=== PATIENT | female | born 1970 | race Caucasian/White ===

== ENCOUNTER 2019-04-18 08:22 | Outpatient (RCR) | payer BC, SELFPAY | END 2019-04-18 08:27 | disposition home or self-care (01) | LOC: PT 08:22 | DX: M54.2 Cervicalgia (principal); M25.562 Pain in left knee | CPT/HCPCS: 97163 ==

== ENCOUNTER 2019-07-04 10:00 | Outpatient (RCR) | payer BC, SELFPAY | END 2019-07-04 10:05 | disposition home or self-care (01) | LOC: PT 10:00 | DX: S92.001A Unspecified fracture of right calcaneus, initial encounter for closed fracture (principal) | CPT/HCPCS: 97110; 97116; 97140; 97163; 97164; 97597; 97760 ==

== ENCOUNTER 2025-01-26 21:29 | Emergency (ER) | payer MEDICAID, SELFPAY ==
[2025-01-26] VITALS (9 sets, daily range): BP systolic 115–172; BP diastolic 80–108; PULSE 43–93; RESP 20; TEMP 36.8; O2SAT 95–99; BMI 23.1
--- NOTE | 2025-01-26 22:15 | ECG_ITS ---
APPROVED REPORT Exam: Resting ECG HR:79 bpm ECG Measurements Heart Rate 79 AXES NM 168 P 67 QRSd 84 QRS 81 QT 364 T 78 QTc 398 Conclusion SINUS RHYTHM POSSIBLE RIGHT VENTRICULAR CONDUCTION DELAY [RSR (QR) IN V1/V2] No STEMI Electronically signed by : JEAN CARLOS DAVIS, 01/29/2025 19:25:23
--- NOTE | 2025-01-26 22:15 | CT_ITS ---
PROCEDURE INFORMATION: Exam: CTA Chest With Contrast Exam date and time: 01/26/2025 11:26 PM Age: 54 years old Clinical indication: Chest wall pain; Additional info: Severe L chest pain TECHNIQUE: Imaging protocol: Computed tomographic angiography of the chest with contrast. Exam focused on the arteries. 3D rendering (Not supervised by radiologist): MIP and/or 3D reconstructed images were created by the technologist. Radiation optimization: All CT scans at this facility use at least one of these dose optimization techniques: automated exposure control; mA and/or kV adjustment per patient size (includes targeted exams where dose is matched to clinical indication); or iterative reconstruction. Contrast material: ISOUVE 370; Contrast volume: 70 ml; Contrast route: INTRAVENOUS (IV); COMPARISON: No relevant prior studies available. FINDINGS: Pulmonary arteries: Normal. No pulmonary emboli. Aorta: Unremarkable. No aortic aneurysm. No aortic dissection. Lungs: 4 x 2.5 x 3 cm rounded well-marginated mass in the right lower lobe with lamellated calcification. Pleural spaces: Unremarkable. No pneumothorax. No pleural effusion. Heart: Unremarkable. No cardiomegaly. No pericardial effusion. Lymph nodes: Unremarkable. No enlarged lymph nodes. Bones/joints: Mildly displaced fracture in the anterior left 5th rib. Soft tissues: Unremarkable. IMPRESSION: 1. Mildly displaced fracture in the anterior left 5th rib. 2. No pulmonary embolus. 3. No aortic aneurysm or dissection. 4. 4 x 2.5 x 3 cm rounded well-marginated mass in the right lower lobe with lamellated calcification. Suspicious for pulmonary hamartoma. Three-month follow-up CT recommended to confirm stability.
--- NOTE | 2025-01-26 22:32 | [facility].EDGENADL ---
Discharge Plan Disposition Patient Disposition: Home, Self-Care Condition: Good Prescriptions Prescriptions: New lidocaine 5 % adhesive patch,medicated See Rx Instructions .ROUTE .COMPLEX Qty: 15 0RF Rx Instructions: Apply to most painful area for 12 hours. Remove and leave off for 12 hours before using a new patch. methocarbamol 500 mg tablet 500 mg PO Q6H PRN (Reason: muscle spasm) Qty: 30 0RF hydrocodone-acetaminophen 5-325 mg tablet 1 tab PO Q6H PRN (Reason: pain (scale score 7-10)) Qty: 10 0RF Referrals Follow up/Referrals: Karsten Calle [Primary Care Provider] - See instructions Activity Restrictions/Add. Instructions Additional Instructions/Restrictions: Your evaluated in the ER and are appropriate for discharge at this time. Take Tylenol, ibuprofen if needed for pain, do not exceed the recommended dose on the bottle. Drink water and eat a small snack each time you take these medications to avoid side effects. Take the prescribed methocarbamol (muscle relaxer) and use the lidocaine patches as directed. If you have severe pain after using these medications, then take the hydrocodone. This medication also contains acetaminophen (Tylenol) so be mindful of this when dosing your daily Tylenol. Do not drive or operate machinery after taking methocarbamol or hydrocodone. These medications are sedating and can alter your judgment. Use the provided incentive spirometer multiple times a day as directed. Please make an appointment with your primary care doctor for reevaluation in 2 to 3 days. Also ask them to follow-up the lesion in your right lung. Return to the ER with new, worsening, or otherwise concerning symptoms. Clinical Impressions Clinical Impression: Left rib fracture, Lesion of lung Instructions Patient Instructions: Rib Fracture, DI for Rib Fracture Print Language Print Language: Belarusian Discharge ED Provider: Ambreen Coyne General Adult HPI <Linda العراقي DO - Last Filed: 01/26/25 23:18> General Chief complaint: PAIN Stated complaint: AO03/20 injury lt rib pain Time Seen by Provider: 01/26/25 22:02 Mode of Arrival: Ambulatory Source of Information: Patient Description of Symptoms (Recalled from ER Triage Doc. by RN): left rib injury today suddenly worse pain History of Present Illness HPI narrative: This patient is a 54-year-old female who denies significant past medical history presenting to the emergency department for evaluation with concern for left posterior lateral rib pain radiating around to her left breast. She states that she feels like there something moving in her skin. She notes that on , she was leaning out of her car window trying to get something in a drive-through when her foot slipped, causing her to fall with all of her weight on her left ribs on her car window. She had some pain and tenderness since then, but nothing severe. Tonight, she states that she was feeling around on that area to see if she felt any knots, and suddenly she experienced really severe pain radiating all around from her lateral rib to her shoulder and then around to her breast about her nipple. She notes that she had her daughter put some cream on there and took ibuprofen but cannot get relief. Given the severe pain, she elected to come to the emergency department for evaluation. No other concerns or complaints noted. Related Data Previous Rx's ?Medication ?Instructions ?Recorded hydrocodone 5 mg-acetaminophen 325 1 tab PO Q6H PRN pain (scale score 01/27/25 mg tablet 7-10) #10 tabs lidocaine 5 % topical patch See Rx Instructions topical 01/27/25 .COMPLEX #15 ea methocarbamol 500 mg tablet 500 mg PO Q6H PRN muscle spasm #30 01/27/25 tabs Allergies Allergy/AdvReac Type Severity Reaction Status Date / Time NO KNOWN ALLERGIES - NKA Allergy Mild Uncoded 10/25/17 14:56 [facility] <Linda العراقي DO - Last Filed: 01/26/25 23:18> [facility] Disclaimer: The information contained in this section may have been updated after the patient was seen, as this information can be updated by other users. Social History (Updated 01/26/25 @ 23:18 by Linda العراقي DO) Smoking Status: Never smoker alcohol intake: never current occupational status: employed Travel in the last 8 weeks: None Have you lived/traveled outside [place] in past 30 days?: No Contact w/someone who lives/traveled outside US past 30 days?: No Exposure to someone with infectious disease in past 14 days?: No Do you have a fever (greater than 100.4 F or 38 C)?: No Have you tested positive for COVID-19: No Exposed to someone with COVID-19 in past 14 days?: No Do you have a sore throat?: No Do you have a cough?: No Do you have any weakness?: No Do you have any diarrhea?: No Are you experiencing any unusual bleeding?: No Do you have any muscle aches/pain?: No Do you have any abdominal pain?: No Are you experiencing loss of taste or smell?: No <Linda العراقي DO - Last Filed: 01/26/25 23:18> ROS Obtained: Yes All systems reviewed & no additional complaints except as documented Physical Exam <Linda العراقي DO - Last Filed: 01/26/25 23:18> General General appearance: alert and anxious Comment: Uncomfortable appearing, anxious, writhing around Head Head exam: atraumatic and normocephalic Eye Eye exam: Present normal appearance, PERRL and EOMI ENT ENT exam: Present normal exam, normal oropharynx, mucous membranes moist and normal external ear exam Neck Neck exam: Present normal inspection, full ROM and trachea midline; Absent tenderness Chest Chest inspection: Present normal inspection and symmetric chest wall rise; Absent tenderness Respiratory Respiratory exam: Present normal lung sounds bilaterally; Absent respiratory distress, wheezes, stridor or accessory muscle use Cardiovascular Cardiovascular exam: Present regular rate and normal rhythm Abdominal Exam Abdominal exam: Present soft; Absent distention, tenderness or guarding Extremities Exam Extremities exam: Present normal inspection, full ROM and normal capillary refill; Absent tenderness or edema Back Exam Back exam: Present normal inspection and full ROM; Absent tenderness Neurological Exam Neurological exam: Present alert, oriented X3, CN II-XII intact and normal gait; Absent motor sensory deficit Psychiatric Psychiatric exam: Present anxious Skin Skin exam: Present warm and dry Medical Decision Making <Linda العراقي DO - Last Filed: 01/26/25 23:18> Medical Records Medical records reviewed: Yes I reviewed the patient's medical records. Screening: Per USPSTF and CDC recommendations, given the prevalence of disease in our region, it is our hospital?s policy to screen for HIV and viral Hepatitis for all patients aged 18 and over and those with ongoing risk factors. Jimmy Inquiry Pt receiving controlled substance: No Vital Signs: 01/26/25 21:58 01/26/25 22:16 01/26/25 22:21 Temperature 98.2 F Temperature Source Oral Pulse Rate 43 L 81 Pulse Rate [Right Brachial] 86 Respiratory Rate 20 Blood Pressure 146/102 H 172/102 H Blood Pressure [Right Arm] 170/97 H Blood Pressure Mean [Right Arm] 121 Blood Pressure Source [Right Arm] Automatic Cuff Blood Pressure Position [Right Arm] Sitting 02 Sat by Pulse Oximetry 99 97 98 Oxygen Delivery Method Room Air Room Air Room Air 01/26/25 22:30 01/26/25 22:40 01/26/25 22:51 Temperature Temperature Source Pulse Rate 86 82 75 Pulse Rate [Right Brachial] Respiratory Rate Blood Pressure 142/99 H 139/100 H 115/80 Blood Pressure [Right Arm] Blood Pressure Mean [Right Arm] Blood Pressure Source [Right Arm] Blood Pressure Position [Right Arm] 02 Sat by Pulse Oximetry 95 96 98 Oxygen Delivery Method Room Air Room Air 01/26/25 23:11 01/26/25 23:20 01/26/25 23:50 Temperature Temperature Source Pulse Rate 93 H 81 73 Pulse Rate [Right Brachial] Respiratory Rate Blood Pressure 134/108 H 125/81 136/86 Blood Pressure [Right Arm] Blood Pressure Mean [Right Arm] Blood Pressure Source [Right Arm] Blood Pressure Position [Right Arm] 02 Sat by Pulse Oximetry 95 97 98 Oxygen Delivery Method Room Air Room Air Room Air 01/27/25 00:10 01/27/25 00:20 01/27/25 00:30 Temperature Temperature Source Pulse Rate 71 70 71 Pulse Rate [Right Brachial] Respiratory Rate Blood Pressure 129/79 120/83 121/83 Blood Pressure [Right Arm] Blood Pressure Mean [Right Arm] Blood Pressure Source [Right Arm] Blood Pressure Position [Right Arm] 02 Sat by Pulse Oximetry 97 96 97 Oxygen Delivery Method Room Air Room Air Room Air 01/27/25 00:40 01/27/25 00:50 01/27/25 01:00 Temperature Temperature Source Pulse Rate 66 70 61 Pulse Rate [Right Brachial] Respiratory Rate Blood Pressure 114/97 H 111/78 116/85 Blood Pressure [Right Arm] Blood Pressure Mean [Right Arm] Blood Pressure Source [Right Arm] Blood Pressure Position [Right Arm] 02 Sat by Pulse Oximetry 96 97 99 Oxygen Delivery Method Room Air Room Air Room Air Lab Data Lab results reviewed: Yes I reviewed the patient's lab results. Lab Results 01/26/25 23:00: WBC 7.4, RBC 3.95 L, Hgb 12.0 L, Hct 36.4 L, MCV 92.2, MCH 30.4, MCHC 33.0, RDW 12.3, Plt Count 272, MPV 10.6 H, Neut % (Auto) 73.2, Lymph % (Auto) 15.5, Mcintosh % (Auto) 8.1, Eos % (Auto) 2.0, Baso % (Auto) 1.1, Neut # (Auto) 5.5, Lymph # (Auto) 1.2, Mcintosh # (Auto) 0.6, Eos # (Auto) 0.2, Baso # (Auto) 0.1, Sodium 140, Potassium 4.1, Chloride 103, Carbon Dioxide 35 H, Anion Gap 6.1, BUN 13, Creatinine 0.80, Estimated Creat Clear 102, Estimated GFR 75, Est GFR ( Amer) 91, Glucose 96, Calcium 8.8, Total Bilirubin 0.5, AST 27, ALT 18, Alkaline Phosphatase 110, Troponin I < 0.01, Total Protein 6.9, Albumin 4.3, Globulin 2.9, Albumin/Globulin Ratio 1.5, HCV Ab HELENE w/Rflx PCR Qn Negative, HIV Ag/Ab Combo Qual Negative 01/26/25 23:00 01/26/25 23:00 Orders (Tests/Meds): ED MEDICATIONS Generic Name Dose Route Start Last Admin Trade Name Freq PRN Reason Stop Dose Admin Hydrocodone Bitart/Acetaminophen 1 tab 01/27/25 01:26 01/27/25 01:29 Hydrocodone/Apap 5/325 Mg Tablet PO 01/27/25 01:27 1 tab ONCE ONE Administration Sodium Chloride 10 ml 01/26/25 23:42 01/26/25 23:43 Sodium Chloride 0.9% 10ml Syr (Rad Only) IV 02/25/25 23:41 10 ml NEEDED PRN Administration Maintain IV Site Discontinued Medications Generic Name Dose Route Start Last Admin Trade Name Freq PRN Reason Stop Dose Admin Acetaminophen 1,000 mg 01/26/25 22:16 01/26/25 22:42 Acetaminophen 1,000mg/100ml Vial IV 01/26/25 22:17 1,000 mg ONCE ONE Administration Iopamidol 70 ml 01/26/25 23:42 01/26/25 23:43 Iopamidol-370 (76%);100ml Bottle IV 01/26/25 23:43 70 ml ONCE ONE Administration Ketorolac Tromethamine 15 mg 01/26/25 22:16 01/26/25 22:42 Ketorolac 30mg/Ml Vial IV 01/26/25 22:17 15 mg ONCE ONE Administration Lidocaine 1 each 01/26/25 22:16 01/26/25 22:42 Lidocaine 5% Transdermal Patch TP 01/26/25 22:17 1 each ONCE ONE Administration Methocarbamol 500 mg 01/26/25 22:16 01/26/25 22:42 Methocarbamol 500mg Tablet PO 01/26/25 22:17 500 mg ONCE ONE Administration Sodium Chloride 40 ml 01/26/25 23:42 01/26/25 23:43 0.9 % Sodium Chloride 50 Ml Vial IV 01/26/25 23:43 40 ml ONCE ONE Administration ORDERS Category Date Time Status CT angio chest PE protocol Stat Cat Scan 01/26/25 22:15 Completed CBC w/Auto Diff [Complete Blood Count Auto Diff] Stat Lab 01/26/25 23:00 Completed CMP [Comprehensive Metabolic Panel] Stat Lab 01/26/25 23:00 Completed HIV Combo Routine Lab 01/26/25 23:00 Completed Hepatitis C Ab Qual. W/ RFX Routine Lab 01/26/25 23:00 Completed Trop I [Troponin I] Stat Lab 01/26/25 23:00 Completed Troponin I Q3H Lab 01/27/25 01:30 Ordered Troponin I Q3H Lab 01/27/25 04:30 Ordered ECG Data Tracing #1: I reviewed this ECG and interpreted as documented below: Normal sinus rhythm with a ventricular rate of [address] changes concerning for ischemia. Normal intervals. ECG initial impression date: 01/26/25 ECG initial impression time: 23:00 Medical Decision Narrative: In summary, this patient is a 54-year-old female presenting to the Emergency Department for evaluation of rib pain that initially started on after falling with her ribs into her car window, but acutely worsened tonight when she was feeling the area. Differential diagnoses considered include but are not limited to musculoskeletal strain/sprain, rib fracture, costochondritis, PE, pneumothorax, pleurisy. Ruling out the most morbid conditions drove assessment. On exam, patient is very uncomfortable appearing, anxious appearing, and writhing around in the bed. She has significant tenderness to palpation of her left ribs around rib 4 5, but I do not appreciate any step-offs, deformities, crepitus, bruising, or skin lesions. Workup included CBC, CMP, troponin, CTA chest, and EKG. She was given IV Toradol, acetaminophen, oral Robaxin, and a topical Lidoderm patch. EKG obtained is reassuring. Patient care signed out to the oncoming provider, Dr. Coyne, pending labs and imaging. <Ambreen Coyne MD - Last Filed: 01/27/25 01:31> Jimmy Inquiry Pt receiving controlled substance: Yes Jimmy was queried for this patient: No Reason not queried -: Emergent pt cond-no time Risks and benefits of using a controlled substance: were discussed with pt by me Comment: PDMP shows patient receives methylphenidate but no other controlled substan Vital Signs: 01/26/25 21:58 01/26/25 22:16 01/26/25 22:21 Temperature 98.2 F Temperature Source Oral Pulse Rate 43 L 81 Pulse Rate [Right Brachial] 86 Respiratory Rate 20 Blood Pressure 146/102 H 172/102 H Blood Pressure [Right Arm] 170/97 H Blood Pressure Mean [Right Arm] 121 Blood Pressure Source [Right Arm] Automatic Cuff Blood Pressure Position [Right Arm] Sitting 02 Sat by Pulse Oximetry 99 97 98 Oxygen Delivery Method Room Air Room Air Room Air 01/26/25 22:30 01/26/25 22:40 01/26/25 22:51 Temperature Temperature Source Pulse Rate 86 82 75 Pulse Rate [Right Brachial] Respiratory Rate Blood Pressure 142/99 H 139/100 H 115/80 Blood Pressure [Right Arm] Blood Pressure Mean [Right Arm] Blood Pressure Source [Right Arm] Blood Pressure Position [Right Arm] 02 Sat by Pulse Oximetry 95 96 98 Oxygen Delivery Method Room Air Room Air 01/26/25 23:11 01/26/25 23:20 01/26/25 23:50 Temperature Temperature Source Pulse Rate 93 H 81 73 Pulse Rate [Right Brachial] Respiratory Rate Blood Pressure 134/108 H 125/81 136/86 Blood Pressure [Right Arm] Blood Pressure Mean [Right Arm] Blood Pressure Source [Right Arm] Blood Pressure Position [Right Arm] 02 Sat by Pulse Oximetry 95 97 98 Oxygen Delivery Method Room Air Room Air Room Air 01/27/25 00:10 01/27/25 00:20 01/27/25 00:30 Temperature Temperature Source Pulse Rate 71 70 71 Pulse Rate [Right Brachial] Respiratory Rate Blood Pressure 129/79 120/83 121/83 Blood Pressure [Right Arm] Blood Pressure Mean [Right Arm] Blood Pressure Source [Right Arm] Blood Pressure Position [Right Arm] 02 Sat by Pulse Oximetry 97 96 97 Oxygen Delivery Method Room Air Room Air Room Air 01/27/25 00:40 01/27/25 00:50 01/27/25 01:00 Temperature Temperature Source Pulse Rate 66 70 61 Pulse Rate [Right Brachial] Respiratory Rate Blood Pressure 114/97 H 111/78 116/85 Blood Pressure [Right Arm] Blood Pressure Mean [Right Arm] Blood Pressure Source [Right Arm] Blood Pressure Position [Right Arm] 02 Sat by Pulse Oximetry 96 97 99 Oxygen Delivery Method Room Air Room Air Room Air Lab Data Lab Results 01/26/25 23:00: WBC 7.4, RBC 3.95 L, Hgb 12.0 L, Hct 36.4 L, MCV 92.2, MCH 30.4, MCHC 33.0, RDW 12.3, Plt Count 272, MPV 10.6 H, Neut % (Auto) 73.2, Lymph % (Auto) 15.5, Mcintosh % (Auto) 8.1, Eos % (Auto) 2.0, Baso % (Auto) 1.1, Neut # (Auto) 5.5, Lymph # (Auto) 1.2, Mcintosh # (Auto) 0.6, Eos # (Auto) 0.2, Baso # (Auto) 0.1, Sodium 140, Potassium 4.1, Chloride 103, Carbon Dioxide 35 H, Anion Gap 6.1, BUN 13, Creatinine 0.80, Estimated Creat Clear 102, Estimated GFR 75, Est GFR ( Amer) 91, Glucose 96, Calcium 8.8, Total Bilirubin 0.5, AST 27, ALT 18, Alkaline Phosphatase 110, Troponin I < 0.01, Total Protein 6.9, Albumin 4.3, Globulin 2.9, Albumin/Globulin Ratio 1.5, HCV Ab HELENE w/Rflx PCR Qn Negative, HIV Ag/Ab Combo Qual Negative Orders (Tests/Meds): ED MEDICATIONS Generic Name Dose Route Start Last Admin Trade Name Freq PRN Reason Stop Dose Admin Hydrocodone Bitart/Acetaminophen 1 tab 01/27/25 01:26 01/27/25 01:29 Hydrocodone/Apap 5/325 Mg Tablet PO 01/27/25 01:27 1 tab ONCE ONE Administration Sodium Chloride 10 ml 01/26/25 23:42 01/26/25 23:43 Sodium Chloride 0.9% 10ml Syr (Rad Only) IV 02/25/25 23:41 10 ml NEEDED PRN Administration Maintain IV Site Discontinued Medications Generic Name Dose Route Start Last Admin Trade Name Thomas PRN Reason Stop Dose Admin Acetaminophen 1,000 mg 01/26/25 22:16 01/26/25 22:42 Acetaminophen 1,000mg/100ml Vial IV 01/26/25 22:17 1,000 mg ONCE ONE Administration Iopamidol 70 ml 01/26/25 23:42 01/26/25 23:43 Iopamidol-370 (76%);100ml Bottle IV 01/26/25 23:43 70 ml ONCE ONE Administration Ketorolac Tromethamine 15 mg 01/26/25 22:16 01/26/25 22:42 Ketorolac 30mg/Ml Vial IV 01/26/25 22:17 15 mg ONCE ONE Administration Lidocaine 1 each 01/26/25 22:16 01/26/25 22:42 Lidocaine 5% Transdermal Patch TP 01/26/25 22:17 1 each ONCE ONE Administration Methocarbamol 500 mg 01/26/25 22:16 01/26/25 22:42 Methocarbamol 500mg Tablet PO 01/26/25 22:17 500 mg ONCE ONE Administration Sodium Chloride 40 ml 01/26/25 23:42 01/26/25 23:43 0.9 % Sodium Chloride 50 Ml Vial IV 01/26/25 23:43 40 ml ONCE ONE Administration ORDERS Category Date Time Status CT angio chest PE protocol Stat Cat Scan 01/26/25 22:15 Completed CBC w/Auto Diff [Complete Blood Count Auto Diff] Stat Lab 01/26/25 23:00 Completed CMP [Comprehensive Metabolic Panel] Stat Lab 01/26/25 23:00 Completed HIV Combo Routine Lab 01/26/25 23:00 Completed Hepatitis C Ab Qual. W/ RFX Routine Lab 01/26/25 23:00 Completed Trop I [Troponin I] Stat Lab 01/26/25 23:00 Completed Troponin I Q3H Lab 01/27/25 01:30 Ordered Troponin I Q3H Lab 01/27/25 04:30 Ordered Medical Decision Narrative: In summary, this patient is a 54-year-old female presenting to the Emergency Department for evaluation of rib pain that initially started on after falling with her ribs into her car window, but acutely worsened tonight when she was feeling the area. Differential diagnoses considered include but are not limited to musculoskeletal strain/sprain, rib fracture, costochondritis, PE, pneumothorax, pleurisy. Ruling out the most morbid conditions drove assessment. On exam, patient is very uncomfortable appearing, anxious appearing, and writhing around in the bed. She has significant tenderness to palpation of her left ribs around rib 4 5, but I do not appreciate any step-offs, deformities, crepitus, bruising, or skin lesions. Workup included CBC, CMP, troponin, CTA chest, and EKG. She was given IV Toradol, acetaminophen, oral Robaxin, and a topical Lidoderm patch. EKG obtained is reassuring. Patient care signed out to the oncoming provider, Dr. Coyne, pending labs and imaging. Coyne: Upon assumption of care patient is stable. I agree with the assessment and plan from Dr. العراقي. Labs reviewed by me demonstrating mild anemia but no leukocytosis, CMP nonactionable, troponin undetectably low which is significantly reassuring in the setting of reassuring ECG. CT personally interpreted by me demonstrates left rib fracture. See radiology read for final interpretation. Patient does have abnormality in the right lung as well. She was made aware of this and instructed to follow this up outpatient. Patient was given incentive spirometer and was able to pull [id number] on it. She received a single dose of hydrocodone acetaminophen and I prescribed lidocaine, methocarbamol, hydrocodone. She is appropriate for discharge at this time since her vitals are good and she has isolated rib fracture with good air movement and oxygenation. Patient was given instructions on symptomatic management, follow up instructions, and return precautions for the emergency department. Patient indicated understanding and was discharged in stable condition. Critical Care <Linda العراقي, DO - Last Filed: 01/26/25 23:18> Critical Care Time Critical Care Time: No
[2025-01-26] MEDS: LIDOCAINE 5% TRANSDERMAL PATCH 1 EACH TP (22:42)
[2025-01-26] MEDS: ACETAMINOPHEN 1,000MG/100ML VIAL 1000 MG IV (22:42)
[2025-01-26] MEDS: KETOROLAC 30MG/ML VIAL 15 MG IV (22:42)
[2025-01-26] MEDS: METHOCARBAMOL 500MG TABLET 500 MG PO (22:42)
[2025-01-26 23:11] LABS: Basophils # 0.1 K/mm3 (0-0.2); Basophils % 1.1 % (0.1-2.0); Eosinophils # 0.2 K/mm3 (0.0-0.4); Hematocrit 36.4 % (37.0-47.0); Lymphocytes # 1.2 K/mm3 (0.7-4.5); Lymphocytes % 15.5 % (10-50); Mean Corpuscular Hemoglobin 30.4 pg (27.0-31.2); Mean Corpuscular Volume 92.2 fl (81-99); Mean Platelet Volume 10.6 fl (7.4-10.4); Monocytes # 0.6 K/mm3 (0.1-1.0); Monocytes % 8.1 % (1.7-9.3); Neutrophils # 5.5 K/mm3 (1.8-7.8); Neutrophils % 73.2 % (37.0-80.0); Platelet Count 272 K/mm3 (142-424); Red Blood Count 3.95 M/mm3 (4.20-5.40); Red Cell Distribution Width 12.3 % (11.5-17.5); White Blood Count 7.4 K/mm3 (4.8-10.8)
[2025-01-26 23:18] LABS: Albumin Level 4.3 g/dl (3.5-5.0); Chloride 103 mmol/L (98-107); Sodium 140 mmol/L (136-145)
[2025-01-26 23:19] LABS: Potassium 4.1 mmoL/L (3.5-5.1)
[2025-01-26 23:21] LABS: Alanine Aminotransferase 18 U/L (12-78); Alkaline Phosphatase 110 U/L (38-126); Anion Gap 6.1 mEq/L (5-15); Aspartate Amino Transferase 27 U/L (14-36); Bilirubin,Total 0.5 mg/dl (0.2-1.3); Blood Urea Nitrogen 13 mg/dl (7-17); Carbon Dioxide 35 mmol/L (22.0-30.0); Creatinine Clearance Estimated 102 mL/min (50-200); Estimated Glomerular Filt Rate 75 ml/min (>60); GFR (African American) 91 ML/MIN (>60); Glucose 96 mg/dl (74-100); Total Protein,Serum 6.9 g/dl (6.3-8.2)
[2025-01-26 23:22] LABS: Calcium 8.8 mg/dl (8.4-10.2)
[2025-01-26 23:33] LABS: Troponin I < 0.01 ng/ml (0.00-0.034)
[2025-01-26] MEDS: IOPAMIDOL-370 (76%);100ML BOTTLE 70 ML IV (23:43)
[2025-01-26] MEDS: SODIUM CHLORIDE 0.9% 10ML SYR (RAD ONLY) 10 ML IV (23:43)
[2025-01-26] MEDS: 0.9 % SODIUM CHLORIDE 50 ML VIAL 40 ML IV (23:43)
[2025-01-27] VITALS (10 sets, daily range): BP systolic 104–173; BP diastolic 72–131; PULSE 61–88; RESP 16; TEMP 36.6; O2SAT 93–99
[2025-01-27 00:14] LABS: HIV Combo NEGATIVE (Negative)
[2025-01-27 00:22] LABS: Hepatitis C Ab Qual. W/ RFX NEGATIVE (Negative)
[2025-01-27 00:39] LABS: Albumin/Globulin Ratio 1.5 (1.1-1.8); Globulin 2.9 g/dL (1.3-3.2)
[2025-01-27] MEDS: HYDROCODONE/APAP 5/325 MG TABLET 1 TAB PO (01:29)
== END 2025-01-27 01:37 | disposition home or self-care (01) ==
PROVIDERS: Emergency Medicine; Emergency Provider Emergency Medicine; PCP Pediatrics
DX: S22.32XA Fracture of one rib, left side, initial encounter for closed fracture (principal); M25.512 Pain in left shoulder; N64.4 Mastodynia; R07.81 Pleurodynia; D64.9 Anemia, unspecified; R91.1 Solitary pulmonary nodule; W19.XXXA Unspecified fall, initial encounter; Y92.810 Car as the place of occurrence of the external cause
CPT/HCPCS: 71275; 80053; 84484; 85025; 86803; 87389; 93005; 96365; 96374; 96375; 99284; 99285; J0131; J1885; Q9967